=== PATIENT | male | born 1955 | race Caucasian/White ===

== ENCOUNTER → 2019-09-14 | Day surgery (SDC) | payer MEDICARE ==
[2019-09-07 10:35] LABS: BASOPHILS # (AUTO) 0.1 (0.0-0.1); BASOPHILS % 0.6 % (0.0-1.0); EOSINOPHILS # (AUTO) 0.2 (0.0-0.4); EOSINOPHILS % 1.8 % (0.0-6.0); HEMATOCRIT 46.1 % (38.2-49.6); HEMOGLOBIN 15.2 g/dL (14.0-18.0); LYMPHOCYTES # (AUTO) 1.7 (1.0-3.2); LYMPHOCYTES % 20.1 % (18.0-39.1); MEAN CORPUSCULAR HEMOGLOBIN 29.3 pg (28-32); MONOCYTES # (AUTO) 0.5 (0.2-0.8); MONOCYTES % 6.2 % (4.4-11.3); NEUTROPHILS # (AUTO) 6.1 (2.1-6.9); PLATELET COUNT 257 x10e3/uL (140-360); RED BLOOD COUNT 5.18 x10e6/uL (4.3-5.7); RED CELL DISTRIBUTION WIDTH 13.1 % (11.7-14.4)
[2019-09-07 10:52] LABS: INR 1.99
[2019-09-07 11:02] LABS: ALBUMIN 4.1 g/dL (3.5-5.0); ALBUMIN/GLOBULIN RATIO 1.2 (0.8-2.0); ANION GAP 10.2 mmol/L (8-16); CALCIUM 9.8 mg/dL (8.4-10.2); CREATININE, SERUM 1.28 mg/dL (0.72-1.25); POTASSIUM 5.2 mmol/L (3.5-5.1)
[2019-09-14] VITALS (11 sets, daily range): BP systolic 116–142; BP diastolic 77–100
[~2019-09-14] VITALS: Ht 182.9 cm; Wt 136.1 kg
[~2019-09-14] MED LIST: ALPRAZOLAM 0.5 MG TAB ONE; ASPIR 8181 MG PO; ASPIRIN 325 MG TAB ONE; ATORVASTATIN CA20 MG PO; BIVALRIUDIN 250 MG/VIAL VIAL IV ONE; CARTIA XT240 MG PO; CLOPIDOGREL75 MG PO; DIPHENHYDRAMINE HCL 25 MG CAP ONE; FENTANYL CITRATE/PF 100MCG/2 ML INJ ONE; FISH OIL 1,0001 EAC3 PO; GLIMEPIRIDE2 MG PO; HEPARIN SOD/SOD CHLORIDE 2,000 ML ONE; HYDROCHLOROTHIA25 MG PO; IOPAMIDOL 370 MG/ML 200 ML INFUS..BTL INJ ONE; LEVOTHYROXINE50 MCG PO; LIDOCAINE HCL 2% LOCAL 20 ML VIAL ONE; LISINOPRIL10 MG PO; METFORMIN HCL500 MG PO; METOPROLOL TART25 MG PO; METOPROLOL TARTRATE INJ 1 MG/ML VIAL ONE; MIDAZOLAM HCL 2 MG/2 ML VIAL ONE; PRASUGREL 10 MG TAB ONE; SODIUM CHLORIDE 0.9% 1000ML 1,000 ML ONE; SODIUM CHLORIDE 0.9% 50ML 50 ML ONE; VERAPAMIL HCL 2.5 MG/ML 2 ML VIAL ONE; WARFARIN SODIU2.5 MG PO; WARFARIN SODIUM3 MG PO
--- OUTSIDE RECORDS SUMMARY | 2019-09-14 09:25 | XMS REPORT ---
Author Author [facility] Address Unknown Phone Unavailable Care Team Providers Care Physician Internist Name Role Phone Unavailable Unavailable Problems This patient has no known problems. Allergies, Adverse Reactions, Alerts This patient has no known allergies or adverse reactions. Medications This patient has no known medications. Encounters Start Date/Time End Date/Time Encounter Type Admission Type Attending [facility] Care Department Encounter ID 2019-04-19 00:00:00 2019-04-19 00:00:00 Outpatient [facility] [id number] 2019-03-11 14:31:25 2019-03-11 14:31:25 Outpatient [facility] [id number] 2019-01-25 14:27:34 2019-01-25 14:27:34 Outpatient [facility] [id number] 2018-12-07 15:12:43 2018-12-07 15:12:43 Outpatient [facility] [id number] 2018-12-07 14:34:09 2018-12-07 14:34:09 Outpatient [facility] [id number] 2018-12-07 00:00:00 2018-12-07 00:00:00 Outpatient [facility] [id number] 2018-12-07 00:00:00 2018-12-07 00:00:00 Outpatient [facility] [id number] 2018-11-09 00:00:00 2018-11-09 00:00:00 Outpatient [facility] [id number] 2018-10-26 14:42:36 2018-10-26 14:42:36 Outpatient [facility] [id number] 2018-10-26 14:28:22 2018-10-26 14:28:22 Outpatient [facility] [id number] 2018-09-21 13:18:33 2018-09-21 13:18:33 Outpatient [facility] [id number] 2018-09-08 00:00:00 2018-09-08 00:00:00 Outpatient [facility] [id number] 2018-08-28 07:47:39 2018-08-28 07:47:39 Outpatient [facility] [id number] 2018-08-17 14:29:44 2018-08-17 14:29:44 Outpatient [facility] [id number] 2018-08-17 00:00:00 2018-08-17 00:00:00 Outpatient [facility] [id number] 2018-08-07 08:34:45 2018-08-07 08:34:45 Outpatient [facility] [id number] 2018-08-07 07:31:51 2018-08-07 07:31:51 Outpatient [facility] [id number] 2018-08-07 00:00:00 2018-08-07 00:00:00 Outpatient [facility] [id number] 2018-07-14 14:54:35 2018-07-14 14:54:35 Outpatient [facility] [id number] 2018-06-17 09:58:03 2018-06-17 09:58:03 Outpatient [facility] [id number] 2018-05-25 09:58:19 2018-05-25 09:58:19 Outpatient [facility] [id number] 2018-05-08 00:00:00 2018-05-08 00:00:00 Outpatient [facility] [id number] 2018-05-05 10:19:08 2018-05-05 10:19:08 Outpatient [facility] [id number] 2018-04-24 00:00:00 2018-04-24 00:00:00 Outpatient [facility] [id number] 2018-04-23 00:00:00 2018-04-23 00:00:00 Outpatient [facility] [id number] 2018-04-22 00:00:00 2018-04-22 00:00:00 Outpatient [facility] [id number] 2018-04-21 11:00:03 2018-04-21 11:00:03 Outpatient [facility] [id number] 2018-04-21 10:47:35 2018-04-21 10:47:35 Outpatient [facility] [id number] 2018-04-21 09:06:22 2018-04-21 09:06:22 Outpatient [facility] [id number] 2018-04-16 12:45:05 2018-04-16 12:45:05 Outpatient [facility] [id number] 2018-04-07 00:00:00 2018-04-07 00:00:00 Outpatient [facility] [id number] 2018-04-06 10:03:04 2018-04-06 10:03:04 Outpatient [facility] [id number] 2018-04-06 08:17:57 2018-04-06 08:17:57 Outpatient [facility] [id number] 2018-04-06 07:10:42 2018-04-06 07:10:42 Outpatient [facility] [id number] 2018-03-26 00:00:00 2018-03-26 00:00:00 Outpatient [facility] [id number] 2018-03-25 07:29:45 2018-03-25 07:29:45 Outpatient [facility] [id number]
--- NOTE | 2019-09-14 11:35 | NUR ---
p in preop 7, post recovery . Alert oriented and appropriate, PERRLA, respirations even and unlabored to room air. Pulses x4 extremities equal and faint. . Cap fill brisk < 3 sec. TR band 14ml to right radial band. + neurovascular function present Skin warm and dry integrity appears intact in general. IV 20 g to left hand and presents healthy w/o s/s of infiltration or complaint. NS 0.9% at 100ml/hr per pump. Abdomen soft and supple. pt offered toileting, denies need to urinate or defecate. Personal affects with patient. Friend at bedside. Pt and family verbalizes understanding of POC. bed low and locked, side rails up x2 and call light at side. -cgf
--- NOTE | 2019-09-14 12:46 | Operative Report ---
DATE OF PROCEDURE: 09/14/2019 SURGEON: Chaka Flores MD INDICATIONS: 1. Coronary artery disease, angina with abnormal stress test. 2. Atrial fibrillation. 3. Chronic diastolic heart failure. PROCEDURES PERFORMED: 1. Left heart catheterization, selective coronary angiography. 2. Stent placement to the mid right coronary artery. 3. Deployment of right wrist TR band. 4. Conscious sedation, time of administration and monitoring done by dock or pier laborer RN in presence of supervising MD for hemodynamic assessment and maintenance of sedation for total time 65 minutes. COMPLICATIONS: None. RECOMMENDATIONS: 1. Triple anticoagulant therapy for 3 months. 2. Staged left anterior descending artery percutaneous coronary intervention. DESCRIPTION OF PROCEDURE: Access was obtained in the right radial artery. A 5-Yoruba sheath was placed. The patient received Angiomax, oral aspirin, and Effient for anticoagulation. Left main, mild disease. Left anterior descending, proximal and mid 70% to 80%, 2.5 mm vessel. Circumflex had mild disease. Right coronary artery, mid 80% stenosis. A decision was made to intervene on the right coronary artery. The right coronary artery was cannulated using a JR4 6-Yoruba guiding catheter. Runthrough wire was advanced for support. Primary stent 3.0 x 24 mm [employer] Synergy post dilated in the midportion with a 4 mm noncompliant balloon at 18 atmospheres. Excellent end result, less than 10% residual stenosis, JENNYFER-3 flow. No complications. Wire and guide sheath were removed. TR band applied. The patient discharged home the same day. Chaka Flores MD KSB/MODL /[id number]
--- NOTE | 2019-09-14 14:16 | NUR ---
TR band reduced by 2ml. teaching done and repeated back of TR band removal. No acute distress. Denies need , PO or BRP. + neurovascular function. call light remains at bedside.
--- NOTE | 2019-09-14 14:30 | NUR ---
TR band reduced by 2ml. no change in assess . + neurovascular function remains intact. denies pain or need. - cgf
--- NOTE | 2019-09-14 14:30 | NUR ---
TR band reduced by 2ml. no change in assess . + neurovascular function remains intact. denies pain or need. - cgf
--- NOTE | 2019-09-14 14:45 | NUR ---
TR band reduced by 2ml. no change in assess . + neurovascular function remains intact. denies pain or need. - cgf
--- NOTE | 2019-09-14 15:00 | NUR ---
TR band removed. + neurovascular function remains intact. denies pain or need. dressing applied. DC teaching reviewed. pre-arranged transportation contacted - [facility]
--- NOTE | 2019-09-14 16:15 | NUR ---
Pt meets DC criteria. right radial assessed for s/s of complication and presence of hematoma. general skin warm, dry, no discolor, and pulses present. IV removed from left hand. Distal tip appears intact. VS WNL. Pt denies pain, sob, or need at this time. Right radial with + neurovascular function. Friend at bedside. Review of discharge paperwork and follow up instructions. verbalized understanding. Pt to wheelchair and transported to front of hospital. Transferred to private vehicle under own strength w/o incident with DC paperwork in hand. - cgf
== END | disposition home or self-care (01) ==
LOC: CATH LAB 09:11
PROVIDERS: ATTEND Internal Medicine Interventional Cardiology
DX: I25.118 Atherosclerotic heart disease of native coronary artery with other forms of angina pectoris (principal); I11.0 Hypertensive heart disease with heart failure; I50.32 Chronic diastolic (congestive) heart failure; R94.39 Abnormal result of other cardiovascular function study; I48.91 Unspecified atrial fibrillation; I26.99 Other pulmonary embolism without acute cor pulmonale; E78.00 Pure hypercholesterolemia, unspecified; E11.9 Type 2 diabetes mellitus without complications; Z01.812 Encounter for preprocedural laboratory examination; Z79.01 Long term (current) use of anticoagulants; Z79.84 Long term (current) use of oral hypoglycemic drugs; Z68.41 Body mass index [BMI] 40.0-44.9, adult; Z82.49 Family history of ischemic heart disease and other diseases of the circulatory system; Z82.3 Family history of stroke
CPT/HCPCS: 93458; C9600; 36415; 80053; 85025; 85610; 92928; 93454; 99152; 99153; C1725; C1769; C1874; C1887; J0583; J2001; J2250; J3010; J7030; Q9967

== ENCOUNTER → 2019-10-01 | Day surgery (SDC) | payer MEDICARE ==
[2019-09-29 10:13] LABS: BASOPHILS # (AUTO) 0.1 (0.0-0.1); BASOPHILS % 0.6 % (0.0-1.0); EOSINOPHILS # (AUTO) 0.1 (0.0-0.4); EOSINOPHILS % 1.6 % (0.0-6.0); HEMOGLOBIN 14.6 g/dL (14.0-18.0); LYMPHOCYTES # (AUTO) 1.4 (1.0-3.2); LYMPHOCYTES % 16.4 % (18.0-39.1); MEAN CORPUSCULAR HGB CONC 33.2 g/dL (31-35); MEAN CORPUSCULAR VOLUME 87.3 fL (81-99); MONOCYTES # (AUTO) 0.5 (0.2-0.8); MONOCYTES % 5.9 % (4.4-11.3); NEUTROPHILS # (AUTO) 6.6 (2.1-6.9); NEUTROPHILS % 74.9 % (38.7-80.0); PLATELET COUNT 256 x10e3/uL (140-360); RED BLOOD COUNT 5.04 x10e6/uL (4.3-5.7); RED CELL DISTRIBUTION WIDTH 12.8 % (11.7-14.4)
[2019-09-29 10:27] LABS: ANION GAP 13.8 mmol/L (8-16); CALCIUM 9.6 mg/dL (8.4-10.2); CREATININE, SERUM 1.36 mg/dL (0.72-1.25); POTASSIUM 4.8 mmol/L (3.5-5.1)
[2019-10-01] VITALS (13 sets, daily range): BP systolic 100–164; BP diastolic 53–86
[~2019-10-01] VITALS: Ht 182.9 cm; Wt 136.1 kg
[~2019-10-01] MED LIST changes: -ALPRAZOLAM 0.5 MG TAB ONE; -DIPHENHYDRAMINE HCL 25 MG CAP ONE; +HEPARIN SOD (PORCINE) 1000 UNIT/ML 30ML ONE; -METOPROLOL TARTRATE INJ 1 MG/ML VIAL ONE; +NITROGLYCERIN/D5W 200 MCG/ML 250 ML ONE
--- NOTE | 2019-10-01 08:30 | NUR ---
0830am RECEIVING NOTE RAIL SIGNAL WORKER RECOVERY DEPT............................................................... Bedside report received from Randy HOYOS RN. Identifierx2. Alert oriented and appropriate, PERRLA, respirations even and unlabored to room air. Pulses x4 extremities equal and strong. Pedal pulses PT/DP X4 and marked. Cap fill brisk < 3 sec. TR Band down 1100am dc 1pm. Skin warm and dry integrity appears XXX. IV 20g to left hand 100cchr presents healthy w/o s/s of infiltration or complaint. Abdomen soft and supple. pt offered toileting, denies need to urinate or defecate. No personal affects with patient. No family at Pt has understand POC. Currently w/o complaint of pain or need. -frederic/rn
--- NOTE | 2019-10-01 08:31 | Operative Report ---
DATE OF PROCEDURE: 10/01/2019 SURGEON: Chaka Flores MD CARDIAC PRINCIPAL MECHANICAL ENGINEER PROCEDURE INDICATION: Coronary artery disease, staged intervention, unstable angina. PROCEDURES PERFORMED: 1. Left heart catheterization, selective coronary angiography. 2. Stent placement to the proximal mid and distal left anterior descending artery. 3. Deployment of right wrist TR band. 4. Conscious sedation administration, hemodynamic and neurological monitoring in recovery by laboratory apparatus glass grinder RN with supervision by MD for total 65 minutes. COMPLICATIONS: None. MEDICATIONS: Please see list. BLOOD LOSS: Minimal. DESCRIPTION OF PROCEDURE: Access obtained in the right radial artery. A 6-Bahraini sheath was placed, the patient received intravenous Angiomax for anticoagulation. The left anterior descending artery had 80% proximal and distal stenosis. The lesions were crossed using a run-through wire. An XB 3.5 guide was used. Primary stent distal 2.75 x 20, mid 2.75 x 28, and proximal 3.0 x 28 mm deployed at 12, 14 and 14 atmospheres respectively in overlapping fashion. Excellent end result, less than 10% residual stenosis. JENNYFER-3 flow. No complications. Wire and guide sheath removed. TR band applied. The patient discharged home same day. Chaka Flores MD KSB/MODL /[id number]
--- NOTE | 2019-10-01 11:00 | NUR ---
11 am RADIAL COMPRESSION REMOVAL NOTE: Initial Cuff volume 12 cc 1100 am -xcc Removed No hematoma/bleeding noted with normal neurovascular function. 1115 am -5cc Removed No hematoma/ bleeding noted with normal neurovascular function. 1130 am -5cc Removed No hematoma/bleeding noted with normal neurovascular function. Air removal completed. Stasis achieved sterile 2x2,Tegaderm, Coban dressing No hematoma, bleeding noted with normal neurovascular function. Wrist splint in place. Pt instructed on POC. Ds/Rn
--- NOTE | 2019-10-01 13:00 | NUR ---
1300pm DENTAL SURGERY DOCTOR RECOVERY DISCHARGE NURSING NOTE Pt meets DC criteria. Rt TR band site assessed for s/s of complication and presence of hematoma. Skin warm, dry, no discolor, and pulses present. IV removed from left hand. Distal tip appears intact. VS WNL. Pt denies pain, sob, or need at this time. Family friend arrived , discharge paperwork and follow up instruction given verbalized understanding. Pt to wheelchair and transported to front of hospital. Transferred to private vehicle under own strength w/o incident with DC paperwork in hand. - frederic/jesi
== END | disposition home or self-care (01) ==
LOC: CATH LAB 06:05
PROVIDERS: ATTEND Internal Medicine Interventional Cardiology
DX: I25.110 Atherosclerotic heart disease of native coronary artery with unstable angina pectoris (principal); Z01.812 Encounter for preprocedural laboratory examination; Z79.01 Long term (current) use of anticoagulants; Z79.84 Long term (current) use of oral hypoglycemic drugs; Z79.02 Long term (current) use of antithrombotics/antiplatelets; Z79.82 Long term (current) use of aspirin
CPT/HCPCS: 36415; 80048; 85025; C1874; C9600; J0583; J1644; J2001; J2250; J3010; J7030; Q9967; 92928; 99152

== ENCOUNTER → 2020-12-26 | Day surgery (SDC) | payer MEDICARE ==
[2020-12-21 10:04] LABS: BASOPHILS % 0.3 % (0.0-1.0); EOSINOPHILS # (AUTO) 0.2 (0.0-0.4); EOSINOPHILS % 1.9 % (0.0-6.0); HEMATOCRIT 39.8 % (38.2-49.6); LYMPHOCYTES # (AUTO) 1.6 (1.0-3.2); LYMPHOCYTES % 15.9 % (18.0-39.1); MEAN CORPUSCULAR HEMOGLOBIN 28.6 pg (28-32); MEAN CORPUSCULAR HGB CONC 32.7 g/dL (31-35); MEAN CORPUSCULAR VOLUME 87.7 fL (81-99); MONOCYTES # (AUTO) 0.6 (0.2-0.8); MONOCYTES % 6.2 % (4.4-11.3); NEUTROPHILS # (AUTO) 7.6 (2.1-6.9); NEUTROPHILS % 75.3 % (38.7-80.0); PLATELET COUNT 253 x10e3/uL (140-360); RED BLOOD COUNT 4.54 x10e6/uL (4.3-5.7); RED CELL DISTRIBUTION WIDTH 13.4 % (11.7-14.4)
[2020-12-21 10:31] LABS: ALBUMIN 3.9 g/dL (3.5-5.0); ALBUMIN/GLOBULIN RATIO 1.2 (0.8-2.0); ANION GAP 14.3 mmol/L (8-16); CALCIUM 9.1 mg/dL (8.4-10.2); CREATININE, SERUM 1.26 mg/dL (0.72-1.25); POTASSIUM 4.3 mmol/L (3.5-5.1)
[~2020-12-26] VITALS: Ht 182.9 cm; Wt 136.1 kg
[2020-12-26] VITALS (10 sets, daily range): BP systolic 122–160; BP diastolic 52–90
[~2020-12-26] MED LIST changes: +ALPRAZOLAM 0.5 MG TAB ONE; +AMLODIPINE BES2.5 MG PO; -ASPIRIN 325 MG TAB ONE; -BIVALRIUDIN 250 MG/VIAL VIAL IV ONE; +DIPHENHYDRAMINE HCL 25 MG CAP ONE; -HEPARIN SOD (PORCINE) 1000 UNIT/ML 30ML ONE; -NITROGLYCERIN/D5W 200 MCG/ML 250 ML ONE; -PRASUGREL 10 MG TAB ONE; -SODIUM CHLORIDE 0.9% 50ML 50 ML ONE
== END | disposition home or self-care (01) ==
LOC: CATH LAB 13:12
PROVIDERS: ATTEND Internal Medicine Interventional Cardiology
DX: I25.118 Atherosclerotic heart disease of native coronary artery with other forms of angina pectoris (principal); I10 Essential (primary) hypertension; I48.91 Unspecified atrial fibrillation; E11.9 Type 2 diabetes mellitus without complications; D68.9 Coagulation defect, unspecified; Z88.0 Allergy status to penicillin; Z79.02 Long term (current) use of antithrombotics/antiplatelets; Z79.82 Long term (current) use of aspirin; Z79.01 Long term (current) use of anticoagulants; Z79.84 Long term (current) use of oral hypoglycemic drugs; Z68.41 Body mass index [BMI] 40.0-44.9, adult; Z82.49 Family history of ischemic heart disease and other diseases of the circulatory system; Z82.3 Family history of stroke
CPT/HCPCS: 36415; 76937; 80053; 83880; 85025; 93454; C1887; J2001; J2250; J3010; J7030; Q9967; 99152; 99153

== ENCOUNTER 2023-07-24 11:36 | Emergency (ER) | payer MEDICARE ==
[~2023-07-24] VITALS: Ht 182.9 cm; Wt 136.1 kg
[~2023-07-24 11:36] MED LIST changes: -ALPRAZOLAM 0.5 MG TAB ONE; -DIPHENHYDRAMINE HCL 25 MG CAP ONE; -FENTANYL CITRATE/PF 100MCG/2 ML INJ ONE; -HEPARIN SOD/SOD CHLORIDE 2,000 ML ONE; -IOPAMIDOL 370 MG/ML 200 ML INFUS..BTL INJ ONE; -LIDOCAINE HCL 2% LOCAL 20 ML VIAL ONE; -MIDAZOLAM HCL 2 MG/2 ML VIAL ONE; -SODIUM CHLORIDE 0.9% 1000ML 1,000 ML ONE; -VERAPAMIL HCL 2.5 MG/ML 2 ML VIAL ONE
[2023-07-24 11:42] VITALS: O2SAT 100
[2023-07-24] MEDS ORDERED: KETOROLAC TROMETHAMINE 30 MG/ML VIAL IM STA (11:58)
[2023-07-24] MEDS ORDERED: HYDROCODONE/APAP 5MG-325MG TAB PO ONE (12:00)
[2023-07-24] MEDS ORDERED: ULTRAM 50MG50 MG PO (13:08)
== END 2023-07-24 13:17 | disposition home or self-care (01) ==
LOC: ER 11:47
DX: R07.81 Pleurodynia (principal); W17.89XA Other fall from one level to another, initial encounter; Y92.89 Other specified places as the place of occurrence of the external cause; I10 Essential (primary) hypertension; E11.9 Type 2 diabetes mellitus without complications; I48.91 Unspecified atrial fibrillation; I25.10 Atherosclerotic heart disease of native coronary artery without angina pectoris
CPT/HCPCS: 71101; 99283; J1885